=== PATIENT | male | born 1960 | race Caucasian/White ===

== ENCOUNTER 2016-09-17 08:21 | Day surgery (SDC) | payer OTHER ==
[2016-09-17] MEDS ORDERED: PROPOFOL 10 MG/ML VIAL IV ONE (14:00)
[2016-09-17] MEDS ORDERED: MIDAZOLAM HCL 2MG/2ML VIAL IV ONE (14:00)
[2016-09-17] MEDS ORDERED: LIDOCAINE 2% MDV (20MG/ML) 20ML VIAL IV ONE (14:00)
--- NOTE | 2016-09-21 10:00 | Operative Note ---
DATE OF SURGERY: 09/17/2016 REFERRING: Duy Marcano M.D. PREOPERATIVE DIAGNOSIS: Family history of colon polyps. POSTOPERATIVE DIAGNOSES: 1. Colon polyps. 2. Sigmoid diverticulosis. PROCEDURE: COLONOSCOPY with cold snare polypectomy x 2 and cold forceps polypectomy x 1. Surgeon: Alvino Perry M.D. PREPARATION QUALITY: Good. Estimated Blood Loss: Minimal. SPECIMENS: Include transverse polyps x2, sigmoid polyp x1. COMPLICATIONS: None apparent. PROCEDURE: After informed consent was obtained from the patient, he was placed in left lateral decubitus position in the Endoscopy Suite, sedated and monitored by Department of Anesthesia. Digital rectal examination was unremarkable. A well-lubricated PCF-180 colonoscope was inserted into the rectum and advanced to the cecum. Preparation quality was good. The cecum, appendiceal orifice, ileocecal valve and ascending colon were unremarkable. In the transverse colon there were 2 sessile polyps, each removed with a cold snare. Minimal bleeding was noted and the polyps were retrieved. The remainder of the transverse colon and descending colon were unremarkable. The sigmoid colon did reveal scattered diverticula as well as a diminutive polyp. The polyp was removed with a cold forceps. The rectum was unremarkable on forward and in J-turn views. The endoscope was straightened, the rectal ampulla was deflated and the endoscope was removed. RECOMMENDATIONS: I would suggest the patient follow a high-fiber diet and resume his medicines. He will require repeat exam in 3 to 5 years pending tissue histology. As always, thank you for allowing me to participate in the care of your patient. Alvino Perry DO CC: Duy Marcano M.D. [facility]
== END 2016-09-17 10:59 | disposition home or self-care (01) ==
LOC: HOP 08:21
PROVIDERS: ATTEND Internal Medicine Gastroenterology
DX: Z12.11 Encounter for screening for malignant neoplasm of colon (principal); Z83.71 Family history of colonic polyps; I10 Essential (primary) hypertension; F17.200 Nicotine dependence, unspecified, uncomplicated; K63.5 Polyp of colon; K57.30 Diverticulosis of large intestine without perforation or abscess without bleeding